=== PATIENT | male | born 1950 | race Two or more races ===

== ENCOUNTER 2018-08-07 18:10 | Inpatient (IN) | payer OTHER, BC ==
[~2018-08-07] VITALS: Ht 175.3 cm; Wt 68.0 kg
== END 2018-08-10 09:48 | disposition home or self-care (01) | DRG 65 ==
LOC: ER 18:10 → SEC-K 08-08 10:42 → MEDI 08-08 14:38 → MEDJ 08-08 17:02
PROVIDERS: ADMIT Internal Medicine
PROC: B030ZZZ Magnetic Resonance Imaging (MRI) of Brain (ICD-10-PCS; principal; 2018-08-08)
PROC: B345ZZZ Ultrasonography of Bilateral Common Carotid Arteries (ICD-10-PCS; 2018-08-09)
DX: I63.50 Cerebral infarction due to unspecified occlusion or stenosis of unspecified cerebral artery (principal); G81.94 Hemiplegia, unspecified affecting left nondominant side; I10 Essential (primary) hypertension; R29.701 NIHSS score 1
CPT/HCPCS: 70552